=== PATIENT | female | born 1960 ===

== ENCOUNTER 2021-12-25 14:37 | Emergency (ER) | payer OTHER, MEDICARE ==
[2021-12-25 19:59] LABS: Hematocrit 40.1 % (30.3-42.9); Hemoglobin 13.4 gm/dl (10.1-14.3); Mean Corpuscular HGB Conc 34 % (30-34); Mean Corpuscular Volume 88 fl (79-97); Platelet Count 257 K/mm3 (140-440); Red Blood Count 4.55 M/mm3 (3.65-5.03); Red Cell Distribution Width 13.7 % (13.2-15.2)
[2021-12-25 20:21] LABS: Alanine Aminotransferase 9 units/L (7-56); Blood Urea Nitrogen 7 mg/dL (7-17); Calcium 9.1 mg/dL (8.4-10.2); Hemolysis Index 20
[2021-12-25 20:24] LABS: BUN/Creatinine Ratio 10
== END 2021-12-27 01:58 | disposition left against medical advice (07) ==
LOC: ED 14:37
DX: R73.9 Hyperglycemia, unspecified (principal); Z53.21 Procedure and treatment not carried out due to patient leaving prior to being seen by health care provider
CPT/HCPCS: 36415; 80053; 82962; 85027